=== PATIENT | male | born 1970 | race Caucasian/White ===

== ENCOUNTER 2019-11-28 00:01 | Emergency (ER) | payer MEDICAID ==
[~2019-11-28] VITALS: Ht 175.3 cm; Wt 84.0 kg
[2019-11-28 00:24] VITALS: BP 145/94
[2019-11-28] MEDS ORDERED: LIDOCAINE HCL/EPINEPHRINE 1%-EPI 1:100,000 30 ML VIAL INFIL ONE (01:00)
[2019-11-28] MEDS ORDERED: HYDROCODONE/ACETAMINOPHEN 5/325MG TABLET PO ONE ×2 (01:30→03:45)
[2019-11-28] MEDS ORDERED: LIDOCAINE 1%/EPI 1:100,000 10 ML VIAL IJ NR (02:00)
[2019-11-28] MEDS ORDERED: CEPHALEXIN 250MG CAPSULE PO ONE (03:45)
[2019-11-28] MEDS ORDERED: SULFAMETHOXAZOLE/TRIMETHOPRIM 800/160MG TABLET PO ONE (03:45)
== END 2019-11-28 04:22 | disposition home or self-care (01) ==
LOC: ER 00:01
DX: S02.32XB Fracture of orbital floor, left side, initial encounter for open fracture (principal); S02.832B Fracture of medial orbital wall, left side, initial encounter for open fracture; F10.21 Alcohol dependence, in remission; F12.10 Cannabis abuse, uncomplicated; Y04.0XXA Assault by unarmed brawl or fight, initial encounter; Y93.89 Activity, other specified; Y92.018 Other place in single-family (private) house as the place of occurrence of the external cause
CPT/HCPCS: 12015; 70486; 99284

== ENCOUNTER 2020-01-27 07:33 | Emergency (ER) | payer MEDICAID, OTHER ==
[~2020-01-27] VITALS: Ht 160 cm; Wt 91.0 kg
[2020-01-27] MEDS ORDERED: KETOROLAC 60MG/2ML VIAL IM ONE (08:00)
[2020-01-27 08:05] VITALS: BP 159/90
== END 2020-01-27 09:01 | disposition home or self-care (01) ==
LOC: ER 07:49
DX: S93.401A Sprain of unspecified ligament of right ankle, initial encounter (principal); F10.21 Alcohol dependence, in remission; Y35.893A Legal intervention involving other specified means, suspect injured, initial encounter; Y93.89 Activity, other specified; Y92.488 Other paved roadways as the place of occurrence of the external cause
CPT/HCPCS: 73610; 96372; 99283; J1885